=== PATIENT | male | born 1975 | race Caucasian/White ===

== ENCOUNTER → 2018-06-08 | Outpatient (CLI) | payer OTHER ==
--- NOTE | 2018-06-08 14:57 | US ---
EXAMINATION TYPE: US abdomen limited DATE OF EXAM: 06/08/2018 COMPARISON: NONE CLINICAL HISTORY: 42-year-old male K42.9 Umbilical hernia without obstruction or gang. Painful lump j ust superior to umbilicus Technique: Targeted sonographic examination along the supraumbilical midline at the site of painful p alpable lump. FINDINGS: Clinical Informaticist notes: Just superior to umbilicus there is findings suggesting a tiny focal defect involv ing the left paramedian linea alba with a small protrusion seen measuring 1.1 cm wide by 1.0 cm crani ocaudal by 4 mm thick. The fascial defect is estimated at 2 to 3 mm. There is no peristalsis, bowel signature, or change with Valsalva maneuvers. IMPRESSION: 1. Targeted scanning at the site of patient's painful just above the umbilicus. 2. Findings suspicious for a small 1.1 cm fatty ventral hernia with a tiny 2 to 3 mm abdominal wall d efect along the left paramedian linea alba.
== END | disposition home or self-care (01) ==
LOC: RADUSWWP 13:00
PROVIDERS: ATTEND Family Medicine
DX: K42.9 Umbilical hernia without obstruction or gangrene (principal)
CPT/HCPCS: 76705

== ENCOUNTER 2019-01-05 23:32 | Emergency (ER) | payer OTHER ==
[2019-01-05 23:37] VITALS: RESP 18; TEMP 97.8
--- NOTE | 2019-01-06 01:00 | US ---
EXAMINATION TYPE: US scrotum with doppler. Grayscale and color Doppler Duplex imaging performed of t lou scrotum. DATE OF EXAM: 01/06/2019 COMPARISON: NONE CLINICAL HISTORY: pain. Left testicular pain and swelling EXAM MEASUREMENTS: TESTICLES: Right Testicle: 5.3 x 2.2 x 2.9 cm Left Testicle: 4.6 x 2.3 x 3.0 cm EPIDIDYMIS HEAD: Right Epididymis: 1.0 x 1.2 x 1.9 cm Left Epididymis: 1.0 x 1.1 x 2.0 cm Doppler performed to assess for testicular vascularity; good bilateral color flow and waveforms are s een. There is no evidence of testicular torsion. Presence of hydroceles: right 2.6cm, left 3.4cm Presence of varicoceles: no Prominent hypervascular left epididymis IMPRESSION: There are mild bilateral hydroceles. No testicular torsion or mass. There is hyperemia of the left epididymis consistent with epididymitis.
[2019-01-06 01:19] LABS: Appearance,Urine Clear (Clear); Bilirubin,Urine Negative (Negative); Blood,Urine Negative (Negative); Color,Urine Yellow; Glucose,Urine (UA) Negative (Negative); Ketones,Urine Negative (Negative); Leukocyte Esterase,Urine Large (Negative); Mucus,Urine Rare /hpf; Nitrite,Urine Negative (Negative); PH, Urine 5.5 (5.0-8.0); Protein,Urine 1+ (Negative); RBC,Urine 5 /hpf (0-5); Specific Gravity,Urine 1.026 (1.001-1.035)
[2019-01-06 01:32] VITALS: BP 112/59; PULSE 71
[2019-01-06 01:43] LABS: Basophils # (A) 0.1 k/uL (0-0.2); Basophils % (A) 0 %; Eosinophils # (A) 0.3 k/uL (0-0.7); Eosinophils % (A) 2 %; HGB 13.1 gm/dL (13.0-17.5); Lymphocytes # (A) 4.9 k/uL (1.0-4.8); Lymphocytes % (A) 33 %; MCH 32.3 pg (25.0-35.0); MCHC 35.4 g/dL (31.0-37.0); MCV 91.4 fL (80.0-100.0); Mean Platelet Volume 6.8; Monocytes # (A) 1.3 k/uL (0-1.0); Monocytes % (A) 9 %; Neutrophils # (A) 7.9 k/uL (1.3-7.7); Neutrophils % (A) 54 %; Platelet Count 231 k/uL (150-450); RBC 4.05 m/uL (4.30-5.90); RDW 13.7 % (11.5-15.5); WBC 14.6 k/uL (3.8-10.6)
[2019-01-06 01:50] LABS: African American GFR (CKD) >90 (>60 ml/min/1.73 sqM); Anion Gap 8 mmol/L; Blood Urea Nitrogen 20 mg/dL (9-20); Carbon Dioxide 25 mmol/L (22-30); Chloride 106 mmol/L (98-107); Glucose 111 mg/dL (74-99); Potassium 3.9 mmol/L (3.5-5.1); Sodium 139 mmol/L (137-145)
[2019-01-06] MEDS ORDERED: cefTRIAXone 250 MG VIAL IM STA (01:56)
--- NOTE | 2019-01-06 01:59 | ED ---
General Adult HPI - General Chief complaint: Urogenital Stated complaint: Male Time Seen by Provider: 01/05/19 23:57 Source: patient Mode of arrival: ambulatory Limitations: no limitations - History of Present Illness Initial comments: Dictation was produced using [employer] dictation software. please excuse any grammatical, word or spelling errors. Chief Complaint: 43-year-old male presents with left testicular pain. History of Present Illness: [id number] male who presents with left testicular swelling and pain. States his pain has been ongoing intermittently for the past several weeks. He was noted to have some blood in the semen as well. Patient denies any dysuria. States that today his pain has been acutely worsened. He states that most of his pain is over the superior portion of the testicle. Patient complains of mild tenderness with Valsalva. Patient had an experience like this in the past overweight away on its own. Patient states he is in a monogamous relationship with his . The ROS documented in this emergency department record has been reviewed and confirmed by me. Those systems with pertinent positive or negative responses have been documented in the HPI. All other systems are other negative and/or noncontributory. PHYSICAL EXAM: General Impression: Alert and oriented x3, not in acute distress HEENT: Normocephalic atraumatic, extra-ocular movements intact, pupils equal and reactive to light bilaterally, mucous membranes moist. Cardiovascular: Heart regular rate and rhythm, S1&S2 audible, no murmurs, rubs or gallops Chest: Lungs clear to auscultation bilaterally, no rhonchi, no wheeze, no rales Abdomen: Bowel sounds present, abdomen soft, non-tender, non-distended, no organomegaly Musculoskeletal: Pulses present and equal in all extremities, no peripheral edema Motor: no focal deficits noted Neurological: CN II-XII grossly intact, no focal motor or sensory deficits noted Skin: Intact with no visualized rashes Psych: Normal affect and mood exam: No urethral discharge, slight swelling of the left testicle compared to the right, illicit tenderness to the superior pole of the left testicle, negative Prehn's sign ED course: 43-year-old male presents with left testicular pain. On arrival are within acceptable limits. Patient was initially seen and evaluated. Patient's clinical presentation genic for epididymitis given illicit tenderness to the superior pole of the left testicle. Ultrasound was obtained showing findings consistent with left epididymitis. She treated with 2050 mg of IM ceftriaxone. Given a ten-day prescription for Levaquin. Pending urine cultures. Patient told to follow-up with primary care physician upon discharge. - Related Data Previous Rx's Medication Instructions Recorded Levofloxacin [Levaquin] 500 mg PO DAILY 10 Days #10 tab 01/06/19 Allergies Allergy/AdvReac Type Severity Reaction Status Date / Time No Known Allergies Allergy Verified 01/05/19 23:37 Review of Systems ROS Statement: Those systems with pertinent positive or pertinent negative responses have been documented in the HPI. ROS Other: All systems not noted in ROS Statement are negative. Past Medical History Past Medical History: No Reported History History of Any Multi-Drug Resistant Organisms: None Reported Additional Past Surgical History / Comment(s): hernia (epigastric), subcut. cyst removed in left arm, Past Psychological History: No Psychological Hx Reported Smoking Status: Current every day smoker Past Alcohol Use History: None Reported Past Drug Use History: Marijuana General Exam Limitations: no limitations Course Vital Signs 01/05/19 01/06/19 23:33 01:31 Temperature 97.8 F Pulse Rate 69 71 Respiratory 18 18 Rate Blood Pressure 120/66 112/59 O2 Sat by Pulse 98 96 Oximetry Medical Decision Making - Lab Data Result diagrams: 01/06/19 01:15 01/06/19 01:15 Lab Results 01/05/19 01/06/19 01/06/19 Range/Units 23:37 01:15 01:15 WBC 14.6 H (3.8-10.6) k/uL RBC 4.05 L (4.30-5.90) m/uL Hgb 13.1 (13.0-17.5) gm/dL Hct 37.0 L (39.0-53.0) % MCV 91.4 (80.0-100.0) fL MCH 32.3 (25.0-35.0) pg MCHC 35.4 (31.0-37.0) g/dL RDW 13.7 (11.5-15.5) % Plt Count 231 (150-450) k/uL Neutrophils % 54 % Lymphocytes % 33 % Monocytes % 9 % Eosinophils % 2 % Basophils % 0 % Neutrophils # 7.9 H (1.3-7.7) k/uL Lymphocytes # 4.9 H (1.0-4.8) k/uL Monocytes # 1.3 H (0-1.0) k/uL Eosinophils # 0.3 (0-0.7) k/uL Basophils # 0.1 (0-0.2) k/uL Sodium 139 (137-145) mmol/L Potassium 3.9 (3.5-5.1) mmol/L Chloride 106 (98-107) mmol/L Carbon Dioxide 25 (22-30) mmol/L Anion Gap 8 mmol/L BUN 20 (9-20) mg/dL Creatinine 0.91 (0.66-1.25) mg/dL Est GFR (CKD-EPI)AfAm >90 (>60 ml/min/1.73 sqM) Est GFR (CKD-EPI)NonAf >90 (>60 ml/min/1.73 sqM) Glucose 111 H (74-99) mg/dL Calcium 9.0 (8.4-10.2) mg/dL Urine Color Yellow Urine Appearance Clear (Clear) Urine pH 5.5 (5.0-8.0) Ur Specific [place] 1.026 (1.001-1.035) Urine Protein 1+ H (Negative) Urine Glucose (UA) Negative (Negative) Urine Ketones Negative (Negative) Urine Blood Negative (Negative) Urine Nitrite Negative (Negative) Urine Bilirubin Negative (Negative) Urine Urobilinogen 2.0 (<2.0) mg/dL Ur Leukocyte Esterase Large H (Negative) Urine RBC 5 (0-5) /hpf Urine WBC 126 H (0-5) /hpf Urine Mucus Rare H (None) /hpf Disposition Clinical Impression: Epididymitis Disposition: HOME SELF-CARE Condition: Good Prescriptions: Levofloxacin [Levaquin] 500 mg PO DAILY 10 Days #10 tab Is patient prescribed a controlled substance at d/c from ED?: No Referrals: Gabrielle Beltre MD [Primary Care Provider] - 1-2 days Time of Disposition: 01:57
== END 2019-01-06 02:20 | disposition home or self-care (01) ==
LOC: EC 23:32
DX: N45.1 Epididymitis (principal); F17.200 Nicotine dependence, unspecified, uncomplicated
CPT/HCPCS: 36415; 80048; 85025; 81001; 87086; 93975; 76870; 99284; 96372; J0696

== ENCOUNTER → 2019-05-21 | Outpatient (CLI) | payer OTHER ==
[2019-05-21 13:08] LABS: African American GFR (CKD) >90 (>60 ml/min/1.73 sqM); Blood Urea Nitrogen 15 mg/dL (9-20); Non-African American GFR(CKD) >90 (>60 ml/min/1.73 sqM)
--- NOTE | 2019-05-21 14:12 | CT ---
EXAMINATION TYPE: CT urogram wo/w con DATE OF EXAM: 05/21/2019 COMPARISON: None HISTORY: Hematuria about [address] DLP: 1544.8 mGycm CONTRAST: Performed without Oral Contrast and with IV Contrast, patient injected with 100 mL of Isovue 300. CT Urography was performed with unenhanced followed by enhanced images of the kidneys, ureters and ur inary bladder. Delayed images were obtained. 3d reconstruction was performed at a separate work sta tion. FINDINGS: KIDNEYS/BLADDER: No hydronephrosis. No nephrolithiasis. No distinct renal mass. Urinary bladder gr ossly unremarkable. LUNG BASES-: No visible nodule. No infiltrate. Linear basilar atelectasis. LIVER/GB: No calcified gallstones. No space occupying hepatic lesion. Biliary tree is of normal ca liber. PANCREAS: No inflammation. No distinct mass. SPLEEN: No splenic enlargement. No lesion seen. ADRENALS: No nodule. No thickening. BOWEL: Normal appendix. Normal bowel caliber. No inflammation. GENITAL ORGANS: No gross abnormality. LYMPH NODES: No greater than 1cm abdominal or pelvic lymph nodes are appreciated. AORTA: No significant abnormality. OSSEOUS STRUCTURES: No significant abnormality is seen. OTHER: No significant additional abnormality is seen. IMPRESSION: 1. No distinct abnormality along the kidneys ureters or urinary bladder to account for the patient's symptoms of hematuria. Correlate clinically.
== END | disposition home or self-care (01) ==
LOC: RADCTMAIN 12:03
PROVIDERS: ATTEND Urology
DX: R31.9 Hematuria, unspecified (principal)
CPT/HCPCS: 82565; 84520; 74178; 36415; 74400; Q9967

== ENCOUNTER 2021-01-09 09:09 | Emergency (ER) | payer OTHER ==
[2021-01-09 09:17] VITALS: TEMP 98.2
[2021-01-09] MEDS ORDERED: SODIUM CHLORIDE 0.9% 1,000 ML IV STA (09:22)
--- NOTE | 2021-01-09 09:30 | ED ---
General Adult HPI - General Chief complaint: Syncope Stated complaint: syncope, head & shoulder injury Time Seen by Provider: 01/09/21 09:18 Source: patient Mode of arrival: ambulatory Limitations: no limitations - History of Present Illness Initial comments: Dictation was produced using [email or web address] dictation software. please excuse any grammatical, word or spelling errors. Chief Complaint: 45-year-old male with no skipped past medical history presents after episode of syncope History of Present Illness: Patient is a 45-year-old male he is too weak symptomatic and recovered from COVID-19. Patient states that last night he felt like To to the bathroom. He got up quickly and rushed over to the bathroom when he became dizzy and fell to the ground. He woke up on the floor. He states he did hit his head. Denies any headache but states that he does have a small hematoma to his left side of his head. Patient states the main reason why is here in the emergency department because of left shoulder pain. Denies any chest pain. No shortness of breath. No history of heart problems. Patient states that Covid has reduced his appetite but recently started trying to eat and consumer fluids. The ROS documented in this emergency department record has been reviewed and confirmed by me. Those systems with pertinent positive or negative responses have been documented in the HPI. All other systems are other negative and/or no ncontributory. PHYSICAL EXAM: General Impression: Alert and oriented x3, not in acute distress HEENT: Normocephalic atraumatic, extra-ocular movements intact, pupils equal and reactive to light bilaterally, mucous membranes moist. Cardiovascular: Heart regular rate and rhythm Chest: Able to complete full sentences, no retractions, no tachypnea Abdomen: abdomen soft, non-tender, non-distended, no organomegaly Musculoskeletal: Pulses present and equal in all extremities, no peripheral edema Motor: no focal deficits noted Neurological: CN II-XII grossly intact, no focal motor or sensory deficits noted Skin: Intact with no visualized rashes Psych: Normal affect and mood Left shoulder: Mild tenderness to palpation to the lateral shoulder ED course: 45-year-old male presents with left shoulder pain. Patient had a syncopal episode last night. Patient has no cardiac conditions. Currently recovering from Covid 19. Syncopal episode likely noncardiac in nature. Likely vasovagal. No gross deformities noted to the shoulder. He does have tenderness however. Patient has head injury but does not take any anticoagulation therapy. Patient has normal neurologic exam. Patient denies headache. EKG interpretation: Ventricular rate 68, normal sinus rhythm,. 160, QRS 90, QTc 435. No AL prolongation, no QTC prolongation, no ST or T-wave changes noted. Overall, this EKG is unremarkable. Laboratory evaluation obtained. Mild leukocytosis of 15.5, rest of labs unremarkable. Shoulder x-ray shows no acute fracture. There does appear to be in moderate narrowing of the before meals joint with capsule Hypertrophy. Patient reevaluated bedside 5 in stable medical condition. Patient will be discharged. - Related Data Home Medications Medication Instructions Recorded Confirmed No Known Home Medications 01/09/21 01/09/21 Allergies Allergy/AdvReac Type Severity Reaction Status Date / Time No Known Allergies Allergy Verified 01/09/21 10:38 Review of Systems ROS Statement: Those systems with pertinent positive or pertinent negative responses have been documented in the HPI. ROS Other: All systems not noted in ROS Statement are negative. Past Medical History Past Medical History: No Reported History History of Any Multi-Drug Resistant Organisms: None Reported Additional Past Surgical History / Comment(s): hernia (epigastric), subcut. cyst removed in left arm, Past Psychological History: No Psychological Hx Reported Smoking Status: Former smoker Past Alcohol Use History: None Reported Past Drug Use History: Marijuana General Exam Limitations: no limitations Course Vital Signs 01/09/21 09:12 Temperature 98.2 F Pulse Rate 80 Respiratory 18 Rate Blood Pressure 116/73 O2 Sat by Pulse 96 Oximetry Medical Decision Making - Lab Data Result diagrams: 01/09/21 09:32 01/09/21 09:32 Lab Results 01/09/21 01/09/21 Range/Units 09:32 09:32 WBC 15.5 H (3.8-10.6) k/uL RBC 4.29 L (4.30-5.90) m/uL Hgb 13.6 (13.0-17.5) gm/dL Hct 40.1 (39.0-53.0) % MCV 93.5 (80.0-100.0) fL MCH 31.7 (25.0-35.0) pg MCHC 33.9 (31.0-37.0) g/dL RDW 12.9 (11.5-15.5) % Plt Count 340 (150-450) k/uL MPV 8.2 Neutrophils % 75 % Lymphocytes % 17 % Monocytes % 7 % Eosinophils % 1 % Basophils % 0 % Neutrophils # 11.6 H (1.3-7.7) k/uL Lymphocytes # 2.6 (1.0-4.8) k/uL Monocytes # 1.1 H (0-1.0) k/uL Eosinophils # 0.1 (0-0.7) k/uL Basophils # 0.0 (0-0.2) k/uL Sodium 138 (137-145) mmol/L Potassium 4.2 (3.5-5.1) mmol/L Chloride 106 (98-107) mmol/L Carbon Dioxide 25 (22-30) mmol/L Anion Gap 7 mmol/L BUN 16 (9-20) mg/dL Creatinine 0.61 L (0.66-1.25) mg/dL Est GFR (CKD-EPI)AfAm >90 (>60 ml/min/1.73 sqM) Est GFR (CKD-EPI)NonAf >90 (>60 ml/min/1.73 sqM) Glucose 108 H (74-99) mg/dL Calcium 8.8 (8.4-10.2) mg/dL Disposition Clinical Impression: Shoulder pain Disposition: HOME SELF-CARE Condition: Fair Instructions (If sedation given, give patient instructions): Shoulder Pain (ED) Is patient prescribed a controlled substance at d/c from ED?: No Referrals: Dain Saucedo MD [Medical Doctor] - 1-2 days
--- NOTE | 2021-01-09 10:03 | XR ---
EXAMINATION TYPE: XR shoulder complete LT DATE OF EXAM: 01/09/2021 CLINICAL HISTORY: Pain after fall injury TECHNIQUE: Three views of the left shoulder are obtained. COMPARISON: None. FINDINGS: There is no acute fracture/dislocation evident in the left shoulder. Moderate narrowing of acromioclavicular joint with capsular hypertrophy and mild spurring. Mild narrowing glenohumeral dannielle int. The distal acromion morphology unremarkable. The visualized ribs are intact . IMPRESSION: There is no acute fracture or dislocation in the left shoulder.
[2021-01-09 10:21] LABS: Basophils % (A) 0 %; Eosinophils # (A) 0.1 k/uL (0-0.7); Eosinophils % (A) 1 %; HCT 40.1 % (39.0-53.0); HGB 13.6 gm/dL (13.0-17.5); Lymphocytes # (A) 2.6 k/uL (1.0-4.8); Lymphocytes % (A) 17 %; MCH 31.7 pg (25.0-35.0); MCHC 33.9 g/dL (31.0-37.0); MCV 93.5 fL (80.0-100.0); Mean Platelet Volume 8.2; Monocytes # (A) 1.1 k/uL (0-1.0); Monocytes % (A) 7 %; Neutrophils # (A) 11.6 k/uL (1.3-7.7); Neutrophils % (A) 75 %; Platelet Count 340 k/uL (150-450); RBC 4.29 m/uL (4.30-5.90); RDW 12.9 % (11.5-15.5); WBC 15.5 k/uL (3.8-10.6)
[2021-01-09 10:39] LABS: African American GFR (CKD) >90 (>60 ml/min/1.73 sqM); Anion Gap 7 mmol/L; Blood Urea Nitrogen 16 mg/dL (9-20); Calcium 8.8 mg/dL (8.4-10.2); Carbon Dioxide 25 mmol/L (22-30); Chloride 106 mmol/L (98-107); Glucose 108 mg/dL (74-99); Non-African American GFR(CKD) >90 (>60 ml/min/1.73 sqM); Potassium 4.2 mmol/L (3.5-5.1); Sodium 138 mmol/L (137-145)
[2021-01-09 11:18] VITALS: BP 122/74; PULSE 87; RESP 20
== END 2021-01-09 11:18 | disposition home or self-care (01) ==
LOC: EC 09:09
DX: M25.512 Pain in left shoulder (principal); F12.90 Cannabis use, unspecified, uncomplicated; Z87.891 Personal history of nicotine dependence
CPT/HCPCS: 36415; 80048; 85025; 93005; 96360; 99285